=== PATIENT | male | born 1955 | race Caucasian/White ===

== ENCOUNTER → 2017-12-17 | Outpatient (CLI) | payer BC ==
[~2017-12-17] MED LIST: CYCL-259 PO; DICL100T4 PO; FURO20TA3 PO; HYDR-3307 PO; LISI-170 PO; POTA8TAB6 PO; WARF10TA6 PO; WARF5TAB7 PO
== END | disposition home or self-care (01) ==
LOC: STAR 14:10
PROVIDERS: ATTEND Orthopaedic Surgery
DX: Z01.818 Encounter for other preprocedural examination (principal); M16.11 Unilateral primary osteoarthritis, right hip
CPT/HCPCS: 87081; 87147

== ENCOUNTER 2017-12-30 07:34 | Inpatient (IN) | payer BC ==
[~2017-12-30] VITALS: Ht 198.1 cm; Wt 167.0 kg
[~2017-12-30 07:34] MED LIST changes: +EPINEPHRINE 1 MG/ML, 1ML ONE; +KETOROLAC 60 MG/2 ML ONE; +NEOSPORIN OINT, 15GM ONE; +ROPIvacaine/PF 0.2%, 20 ML ONE; +SODIUM CHLORIDE 0.9% 0 ML ONE; +TRANEXAMIC ACID 100 MG/ML, 10ML ONE; +morphine SULFATE/PF 1 MG/ML, 10ML ONE
[2017-12-30] MEDS ORDERED: VANCOMYCIN PER PHARMACY MC ONE (08:04)
[2017-12-30] MEDS ORDERED: LACTATED RINGERS 1,000 ML IV SCH (08:15)
[2017-12-30 08:22] VITALS: BP 118/81
[2017-12-30] MEDS ORDERED: VANCOMYCIN 2,500 MG in SODIUM CHLORIDE 0.9% 500 ML IV ONE (08:30)
[2017-12-30 08:49] LABS: INTERNATIONAL NORMALIZED RATIO 0.97 (0.93-1.1)
[2017-12-30] MEDS ORDERED: MIDAZOLAM 1 MG/ML, 2ML ONE (10:38)
[2017-12-30] MEDS ORDERED: KETAMINE 10 MG/ML, 20ML ONE (10:38)
[2017-12-30] MEDS ORDERED: FENTANYL PF 250 MCG/5ML ONE (10:38)
[2017-12-30] MEDS ORDERED: GABAPENTIN 300 MG CAPSULE PO ONE (10:44)
[2017-12-30] MEDS ORDERED: FAMOTIDINE 20 MG TABLET PO ONE (10:44)
[2017-12-30] MEDS ORDERED: ACETAMINOPHEN 500 MG TABLET ONE (10:51)
[2017-12-30] MEDS ORDERED: FAMOTIDINE 20 MG TABLET ONE (10:51)
[2017-12-30] MEDS ORDERED: GABAPENTIN 300 MG CAPSULE ONE ×2 (10:52)
[2017-12-30] MEDS ORDERED: SCOPOLAMINE PATCH, 1.5MG PATCH.TD72 TD ONE ×2 (10:52→11:00)
[2017-12-30] MEDS ORDERED: ACETAMINOPHEN 500 MG TABLET PO ONE (11:00)
[2017-12-30] MEDS ORDERED: TRANEXAMIC ACID 100 MG/ML, 10ML ONE (11:21)
[2017-12-30] MEDS ORDERED: KETOROLAC 60 MG/2 ML ONE (11:21)
[2017-12-30] MEDS ORDERED: NEOSPORIN OINT, 15GM ONE (11:21)
[2017-12-30] MEDS ORDERED: ROPIvacaine/PF 0.2%, 20 ML ONE (11:21)
[2017-12-30] MEDS ORDERED: EPINEPHRINE 1 MG/ML, 1ML ONE (11:22)
[2017-12-30] MEDS ORDERED: morphine SULFATE/PF 0.5 MG/ML, 10ML ONE (11:22)
[2017-12-30] MEDS ORDERED: SODIUM CHLORIDE 0.9% 100 ML ONE (11:22)
[2017-12-30] MEDS ORDERED: VANCOMYCIN 1,000 MG ONE (11:22)
[2017-12-30] MEDS ORDERED: HYDROmorphone 2 MG/ML, 1ML ONE ×2 (13:18→13:51)
[2017-12-30] MEDS: FENTANYL PF 100 MCG/2ML IV PRN ×2 (13:45→13:50)
[2017-12-30] MEDS ORDERED: OXYcodone 5 MG/5 ML ORAL.SOL UDC ONE (13:51)
[2017-12-30] MEDS ORDERED: FENTANYL PF 100 MCG/2ML ONE (13:51)
[2017-12-30] MEDS: HYDROmorphone 1 MG/ML, 1ML IV PRN ×5 (13:55→14:43)
[2017-12-30] MEDS ORDERED: OXYcodone 5 MG/5 ML ORAL.SOL UDC PO PRN (14:00)
[2017-12-30] MEDS ORDERED: DIAZEPAM 5 MG/ML, 2ML IVPush PRN (14:00)
[2017-12-30] MEDS ORDERED: morphine SULFATE 10 MG/ML, 1ML IV PRN (14:00)
[2017-12-30] MEDS ORDERED: MEPERIDINE/PF 25MG/0.5ML IVPush PRN (14:00)
[2017-12-30] MEDS ORDERED: PROMETHAZINE 25 MG/ML, 1ML IV PRN (14:00)
[2017-12-30 15:10] VITALS: BP 116/65
[2017-12-30] MEDS ORDERED: ACETAMINOPHEN 325 MG TABLET PO PRN (16:30)
[2017-12-30] MEDS ORDERED: MAGNESIUM HYDROXIDE 8%, 30ML UDC PO PRN (16:30)
[2017-12-30] MEDS ORDERED: HYDROcodone/APAP 7.5-325MG/15ML UDC PO PRN (16:30)
[2017-12-30] MEDS ORDERED: LORazepam 2 MG/ML, 1ML IV PRN (16:30)
[2017-12-30] MEDS ORDERED: ZOLPIDEM 5MG TABLET PO PRN (16:30)
[2017-12-30] MEDS ORDERED: LORazepam 1MG TABLET PO PRN (16:30)
[2017-12-30] MEDS ORDERED: DIPHENHYDRAMINE 25 MG CAPSULE PO PRN (16:30)
[2017-12-30] MEDS ORDERED: SENNA/DOCUSATE TABLET PO PRN (16:30)
[2017-12-30] MEDS ORDERED: BISACODYL 10 MG SUPP PR PRN (16:30)
[2017-12-30] MEDS ORDERED: ALUMINUM/MAG/SIMETHICONE 30 ML UDC PO PRN (16:30)
[2017-12-30] MEDS: POTASSIUM CHLORIDE 10 MEQ in D5%-0.45% NACL 1,000 ML IV SCH (16:38)
[2017-12-30] MEDS: OXYcodone IR 5MG TABLET PO PRN ×2 (16:38→16:55)
[2017-12-30] MEDS: CYCLOBENZAPRINE 10 MG TABLET PO PRN (16:55)
[2017-12-30] MEDS ORDERED: WARFARIN 10 MG TABLET PO-COUM ONE (18:00)
[2017-12-30] MEDS ORDERED: WARFARIN 5 MG TABLET PO-COUM ONE ×2 (18:00→19:05)
[2017-12-30] MEDS: DOCUSATE 100 MG CAPSULE PO SCH (19:09)
[2017-12-30] MEDS: CEFAZOLIN PMX 1GM/50ML 50 ML IVPB SCH (19:57)
[2017-12-30 19:59] VITALS: BP 125/74
[2017-12-30] MEDS: FUROSEMIDE 20 MG TABLET PO SCH (22:03)
[2017-12-31 02:21] VITALS: BP 125/73
[2017-12-31] MEDS: CEFAZOLIN PMX 1GM/50ML 50 ML IVPB SCH (03:56)
[2017-12-31] MEDS: OXYcodone IR 5MG TABLET PO PRN ×8 (04:04→22:00)
[2017-12-31 04:57] LABS: INTERNATIONAL NORMALIZED RATIO 1.04 (0.93-1.1); PROTHROMBIN TIME 10.7 Seconds (9.6-11.5)
[2017-12-31] MEDS: ENOXAPARIN 30 MG/0.3 ML SQ SCH ×2 (06:00→18:14)
[2017-12-31] MEDS: MULTIVITAMINS/MINERALS TABLET PO SCH (08:41)
[2017-12-31] MEDS: LISINOPRIL 20 MG TABLET PO SCH (08:41)
[2017-12-31] MEDS: FUROSEMIDE 20 MG TABLET PO SCH ×2 (08:41→22:00)
[2017-12-31] MEDS: DOCUSATE 100 MG CAPSULE PO SCH ×2 (08:42→22:00)
[2017-12-31] MEDS: CYCLOBENZAPRINE 10 MG TABLET PO PRN (08:56)
[2017-12-31 09:13] VITALS: BP 115/66
[2017-12-31] MEDS ORDERED: OxyconTIN ER 20 MG TAB.ER PO SCH (10:30)
[2017-12-31] MEDS ORDERED: OxyconTIN ER 20 MG TAB.ER PO PRN (11:00)
[2017-12-31] MEDS: POTASSIUM CHLORIDE 8 MEQ TABLET.ER PO SCH (11:52)
[2017-12-31 12:08] VITALS: BP 101/63
[2017-12-31] MEDS: POTASSIUM CHLORIDE 10 MEQ in D5%-0.45% NACL 1,000 ML IV SCH (12:36)
[2017-12-31 13:50] VITALS: BP 102/57
[2017-12-31] MEDS: KETOROLAC 30 MG/1 ML IV SCH (16:26)
[2017-12-31] MEDS ORDERED: WARFARIN 5 MG TABLET PO-COUM ONE (18:00)
[2017-12-31 19:16] VITALS: BP 90/55
[2018-01-01] MEDS: KETOROLAC 30 MG/1 ML IV SCH ×2 (00:18→08:47)
[2018-01-01 02:12] VITALS: BP 92/46
[2018-01-01] MEDS: ENOXAPARIN 30 MG/0.3 ML SQ SCH (05:25)
[2018-01-01] MEDS: OXYcodone IR 5MG TABLET PO PRN ×3 (05:40→11:06)
[2018-01-01 05:41] LABS: INTERNATIONAL NORMALIZED RATIO 1.04 (0.93-1.1); PROTHROMBIN TIME 10.7 Seconds (9.6-11.5)
[2018-01-01 07:02] VITALS: BP 105/57
[2018-01-01] MEDS: POTASSIUM CHLORIDE 8 MEQ TABLET.ER PO SCH (08:47)
[2018-01-01] MEDS: DOCUSATE 100 MG CAPSULE PO SCH (08:48)
[2018-01-01] MEDS: FUROSEMIDE 20 MG TABLET PO SCH (08:48)
[2018-01-01] MEDS: LISINOPRIL 20 MG TABLET PO SCH (08:49)
[2018-01-01] MEDS: MULTIVITAMINS/MINERALS TABLET PO SCH (08:49)
[2018-01-01] MEDS: POTASSIUM CHLORIDE 10 MEQ in D5%-0.45% NACL 1,000 ML IV SCH (08:49)
[2018-01-01 11:12] VITALS: BP 91/55
[2018-01-01] MEDS ORDERED: OXYC1TAB9 PO (11:15)
[2018-01-01] MEDS ORDERED: WARFARIN 7.5 MG TABLET PO-COUM SCH (18:00)
== END 2018-01-01 12:00 | disposition home or self-care (01) | DRG 470 ==
LOC: ORIP 07:34 → 4NOR 15:38 → DCLOUNGE 01-01 11:44
PROVIDERS: ADMIT Orthopaedic Surgery; ATTEND Orthopaedic Surgery
PROC: 0SR90JZ Replacement of Right Hip Joint with Synthetic Substitute, Open Approach (ICD-10-PCS; principal; 2017-12-30 11:30)
DX: M16.11 Unilateral primary osteoarthritis, right hip (principal); G47.30 Sleep apnea, unspecified; Z87.891 Personal history of nicotine dependence
CPT/HCPCS: 36415; 82565; 85610; 85730; 86850; 86900; C1713; J0171; J0690; J1170; J1650; J1885; J2250; J2274; J2795; J3010; J3370; J3480; C1776; J7120